=== PATIENT | male | born 1940 | race African-American/Black ===

== ENCOUNTER 2017-09-06 09:06 | Emergency (ER) | payer MEDICARE, BC ==
[~2017-09-06] VITALS: Ht 175.3 cm; Wt 86.0 kg
[~2017-09-06 09:06] MED LIST: ASPI-1159 PO; DIABETIC MEDS
[2017-09-06 09:29] VITALS: BP 135/105
== END 2017-09-06 15:02 | disposition left against medical advice (07) ==
LOC: ER 11:07
DX: K08.89 Other specified disorders of teeth and supporting structures (principal); Z53.21 Procedure and treatment not carried out due to patient leaving prior to being seen by health care provider

== ENCOUNTER 2017-09-16 09:11 | Emergency (ER) | payer MEDICARE, BC ==
[~2017-09-16] VITALS: Ht 175.3 cm; Wt 89.0 kg
[2017-09-16] MEDS ORDERED: SODIUM CHLORIDE 0.9% 1,000 ML IV ONE (09:47)
[2017-09-16 10:26] LABS: BASOPHILS % 0.9 % (0.0-2.0); EOSINOPHILS % 3.7 % (0.0-5.0); HEMATOCRIT. 31.6 % (42.0-52.0); HEMOGLOBIN. 10.8 g/dL (14.0-18.0); LYMPHOCYTES % 24.3 % (20.0-50.0); MEAN CORPUSCULAR HEMOGLOBIN 31.1 pg (28.0-32.0); MEAN CORPUSCULAR VOLUME 90.7 fL (80.0-94.0); MONOCYTES % 12.4 % (2.0-8.0); NEUTROPHILS % 58.7 % (40.0-76.0); RED BLOOD CELL COUNT 3.49 mill/uL (4.7-6.1); RED CELL DISTRIBUTION WIDTH 13.8 % (11.6-14.6)
[2017-09-16 10:33] LABS: CHLORIDE 105 mEq/L (98-107)
[2017-09-16 10:39] LABS: PROTHROMBIN TIME 10.5 sec (9.4-11.6)
[2017-09-16 11:03] LABS: CLARITY URINE CLEAR (CLEAR); COLOR URINE YELLOW (YELLOW); KETONES URINE NEGATIVE (NEGATIVE); LEUKOCYTE ESTERASE URINE NEGATIVE (NEGATIVE); NITRITE URINE NEGATIVE (NEGATIVE); OCCULT BLOOD URINE NEGATIVE (NEGATIVE); PH URINE 6.5 (4.5-8.0); PROTEIN URINE NEGATIVE (NEGATIVE)
[2017-09-16 13:47] VITALS: BP 137/85
== END 2017-09-16 13:57 | disposition home or self-care (01) ==
LOC: ER 09:26 → CANBEDREQ 16:05
DX: J06.9 Acute upper respiratory infection, unspecified (principal); J32.9 Chronic sinusitis, unspecified; D64.9 Anemia, unspecified; I20.9 Angina pectoris, unspecified; I25.10 Atherosclerotic heart disease of native coronary artery without angina pectoris; E11.9 Type 2 diabetes mellitus without complications; Z79.82 Long term (current) use of aspirin; Z95.5 Presence of coronary angioplasty implant and graft
CPT/HCPCS: 36415; 71045; 80053; 81003; 83605; 85025; 85610; 87040; 87086; 93005; 96360; 96361; 99285; J7030

== ENCOUNTER 2019-06-09 14:29 | Emergency (ER) | payer MEDICARE, BC ==
[~2019-06-09 14:29] MED LIST changes: -ASPI-1159 PO; +ASPI-1497 PO
== END 2019-06-09 14:50 | disposition left against medical advice (07) ==
LOC: ER 14:29
DX: Z53.21 Procedure and treatment not carried out due to patient leaving prior to being seen by health care provider (principal)

== ENCOUNTER 2022-02-26 12:20 | Emergency (ER) | payer BC, MEDICARE ==
[~2022-02-26] VITALS: Ht 175.3 cm; Wt 75.9 kg
[2022-02-26] MEDS ORDERED: ACETAMINOPHEN 325MG TABLET PO ONE (13:30)
[2022-02-26] MEDS ORDERED: IBUPROFEN 400MG TABLET PO ONE (13:30)
[2022-02-26] MEDS ORDERED: TOPUD MT (13:32)
[2022-02-26] MEDS ORDERED: IBUP-2028 MT (13:32)
[2022-02-26 13:59] VITALS: BP 125/77
== END 2022-02-26 14:09 | disposition home or self-care (01) ==
LOC: ER 12:20
DX: M79.672 Pain in left foot (principal); E11.9 Type 2 diabetes mellitus without complications; I45.2 Bifascicular block; R03.0 Elevated blood-pressure reading, without diagnosis of hypertension; I25.10 Atherosclerotic heart disease of native coronary artery without angina pectoris; Z95.5 Presence of coronary angioplasty implant and graft; Z79.84 Long term (current) use of oral hypoglycemic drugs; Z79.82 Long term (current) use of aspirin; Z79.899 Other long term (current) drug therapy
CPT/HCPCS: 82962; 93005; 99283

== ENCOUNTER 2023-07-09 15:04 | Emergency (ER) | payer BC ==
[~2023-07-09] VITALS: Ht 175.3 cm; Wt 77.0 kg
[~2023-07-09 15:04] MED LIST changes: +IBUP-2028 MT; +TOPUD MT
[2023-07-09 15:18] VITALS: O2SAT 100
[2023-07-09] MEDS ORDERED: METF-414 MT (17:34)
[2023-07-09] MEDS ORDERED: GABA-534 MT (17:34)
[2023-07-09 17:56] VITALS: BP 141/85; PULSE 80; RESP 18; TEMP 98.5
== END 2023-07-09 18:00 | disposition home or self-care (01) ==
LOC: ER 15:04
DX: G62.9 Polyneuropathy, unspecified (principal); E11.9 Type 2 diabetes mellitus without complications; I20.9 Angina pectoris, unspecified; Z79.899 Other long term (current) drug therapy
CPT/HCPCS: 99281; 99283